=== PATIENT | male | born 1985 | race Caucasian/White ===

== ENCOUNTER → 2017-05-15 13:11 | Outpatient (CLI) | payer OTHER, SELFPAY | PROVIDERS: Family Provider Family Medicine; PCP Family Medicine; Visit Provider Family Medicine | DX: I49.9 Cardiac arrhythmia, unspecified (principal) | CPT/HCPCS: 93225; 93226 ==

== ENCOUNTER 2018-06-28 08:00 | Observation (INO) | payer OTHER, SELFPAY ==
[2018-06-28] VITALS (15 sets, daily range): BP systolic 106–125; BP diastolic 57–68; PULSE 51–68; RESP 13–20; TEMP 36.5–36.9; O2SAT 96–99; BMI 23.8; BMI 23.3
--- NOTE | 2018-06-28 08:15 | CT_ITS ---
STUDY: CTA OF THE BRAIN REASON FOR EXAM: Male, 33 years old. N/T LT ARM AND LEG SINCE 644, ON XARELTO FOR IRREG HEARTBEAT, OPEN HEART SURGERY 04/14/17 RADIATION DOSAGE (If Supplied By Facility): CTDIvol = ( 28.57 ) mGy, DLP = ( 1161.17 ) mGycm TECHNIQUE: CT angiography was performed with a multi-detector CT scanner. Data acquisition was obtained from the skull base through the vertex following intravenous administration of Isovue 370 100 IV. MIP images were reconstructed from the axial data set. Post-processing of the angiographic images was performed, with multiplanar reformation and 3D reconstruction. Individualized dose optimization techniques were used for this CT. COMPARISON: None. FINDINGS: Normal bilateral petrous carotid arteries. Normal right cavernous carotid artery with a normal supraclinoid bifurcation. Normal left cavernous carotid artery with a normal supraclinoid bifurcation. Normal right A1 segments of the anterior cerebral artery. Normal left A1 segments of the anterior cerebral artery. Normal intact anterior communicating artery (ACOM). Normal bilateral A2 segments of the anterior cerebral arteries. Normal right M1 and M2 segments of the middle cerebral arteries, with a normal M1 bifurcation. Normal left M1 and M2 segments of the middle cerebral arteries, with a normal M1 bifurcation. Normal right posterior communicating artery (PCOM). Normal left posterior communicating artery (PCOM). Normal bilateral vertebral arteries. Normal basilar artery with a normal basilar bifurcation. The visualized bilateral superior cerebellar (SCA) arteries are normal. Normal bilateral P1, P2 and visualized P3 segments of the posterior cerebral arteries. There is no demonstrated aneurysm of the skull valley of [place]. CT/CTA Head W/WO Contrast IMPRESSION: Normal [place] of [place] without a demonstrated aneurysm or hemodynamically significant stenosis. Electronically Signed: Madison Hernández MD at 9:16 EDT Tel , Service support ,
--- NOTE | 2018-06-28 08:15 | EKG12_ITS ---
Test Reason : NEURO S
[2018-06-28 08:22] LABS: Absolute Lymphocyte Count 2.17 X10^3/ul (0.83-4.51); Absolute Neutrophil Count 3.5 X10^3/uL (2.0-7.7); Basophil# 0.01 X10^3/uL; Basophil% 0.2 % (0-1); Eosinophil# 0.04 X10^3/uL; Eosinophils% 0.6 % (0-5); Hematocrit 45.6 % (40-54); Hemoglobin 15.1 g/dl (13.0-16.5); Lymphocyte # 2.17 X10^3/ul (4.0); Lymphocyte % 34.7 % (19-41); Mean Corp Hgb Conc 33.1 g/gl (32-36); Mean Corpuscular Volume 87.5 fL (80-94); Mean Platelet Vol. 9.5 fl (6.2-12.0); Monocyte# 0.53 X10^3/uL; Monocyte% 8.5 % (0-10); Neutrophil # 3.51 X10^3/uL (2.7-7.7); Platelet Count 181 K/mm3 (150-450); RBC Distribution Width CV 12.2 % (11.6-14.6); Red Blood Count 5.21 M/mm3 (4.6-6.2); White Blood Count 6.3 K/mm3 (4.4-11.0)
[2018-06-28 08:27] LABS: International Normalized Ratio 1.1; Prothrombin Time (Protime)PT. 13.7 SECONDS (11.7-14.9)
[2018-06-28 08:28] LABS: POSITIVE COUNT NO; POSITIVE DIFFERENTIAL NO; POSITIVE MORPHOLOGY NO; Partial Thromboplast Time 30.9 Seconds (24.1-36.2)
[2018-06-28 08:36] LABS: Anion Gap 6 (5-15); BUN 17 mg/dL (7-18); BUN/Creat Ratio 16.3 RATIO (10-20); Calcium,Total 8.9 mg/dL (8.5-10.1); Chloride 106 mmol/L (98-107); Creatinine, Serum 1.04 mg/dL (0.70-1.30); EST Glomerular Filtration Rate 88 mL/min (>60); Est Glom Filt Rate - Afr Amer 106 mL/min (>60); Estimated Creatinine Clearance 98.65 ml/min; Glucose 121 mg/dL (74-106); Potassium 3.8 mmol/L (3.5-5.1); Sodium Level 139 mmol/L (136-145)
--- NOTE | 2018-06-28 08:38 | ED.RN ---
TROP OF 1.[address] MARAVILLA.
--- NOTE | 2018-06-28 08:42 | ED.VISSUMM ---
- ER Visit Summary Date of Service: 06/28/18 Chief Complaint: Numbness left side History of Present Illness: The patient is a 33 M with history of H fibrillation on aspirin awaiting mail order prescription of Xarelto who presents with left-sided numbness that started at 0645. He states the numbness has improved. He denies headache. Denies visual, ocular auditory symptoms. He denies chest discomfort. He denies nausea, vomiting diarrhea. He denies hematemesis, no hematochezia. He denies weakness of his upper or lower extremities. He denies problems with balance. Denies problems with speech or swallowing. 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 He has been seen by Dr. Henderson at [facility]. Physical Examination: Vital signs noted. Monitor reveals what I believe is a sinus rhythm rate of 62. His T waves look abnormal and may represent a P wave inside/on the T wave. Head is atraumatic normocephalic. Pupils are equal round reactive. Extraocular muscles are intact. TMs are pearly white with landmarks noted. Nares patent with no drainage. Posterior pharynx without erythema or exudate. Uvula is midline. There is no dysphonia or dysphasia. Trachea is midline. There is no stridor with auscultation of the neck. Heart is regular without murmur, gallop or rub. S1 and S2 are normal. Lungs are clear to auscultation with good movement of air bilaterally. Abdomen is soft nontender. Patient is alert and oriented ?3. Motor is 5 over 5. Sensory is intact. DTRs are symmetric with no clonus or Babinski sign. Cranial 2 through 12 are intact. Cerebellar testing is normal. NIH is 0 Test Results: EKG sinus rhythm ventricular rate of 64 with a first-degree AV block and premature atrial beats. There is a left bundle branch block which is new from January 2017. He had a left anterior fascicular block at that time. Blood work is remarkable for troponin of 1.39. Lovenox since no evidence of bleed on CTA. Emergency Department Course and Treatment: Concern for embolic phenomenon since he is in A. fib and not on Xarelto. Once I was made aware of the elevated troponin he was reinterviewed and he admits to dyspnea, dyspnea on exertion and states not really with regards to chest pain . Will obtain CT a of the head to look for clot since he has history of paroxysmal A. fib and presently on no anticoagulant. With the elevated troponin he will require admission and will consult cardiology. Treatment Plan: Contact hospitalist for admission for further evaluation and cardiology because of the elevated troponin. Patient has history of hypothyroidism and is on thyroid medicine, [place]. Will obtain a TSH. Since the CTA of the head was unremarkable and troponin is 1.39 he received a dose of Lovenox. Dr. Holly was paged. He is presently caring for patient to [employer]. Hospitalist has been paged for admission and further testing. Disposition: PCU with consultation to cardiology Impression: 1. Elevated troponin evaluate for non-STEMI versus other etiology 2. Left sided paresthesia 3. History of paroxysmal atrial fibrillation This note was generated with [employer] dictation software. It may contain incorrect words, spelling, and punctuation that were not noted in review of the chart prior to signing ED Disposition - Plan for ED Patient: Referrals: Flavio Méndez DO [Primary Care Provider] -
--- NOTE | 2018-06-28 08:48 | ED.DCSUM_ITS ---
- ER Visit Summary Date of Service: 06/28/18 Chief Complaint: Numbness left side History of Present Illness: The patient is a 33 M with history of H fibrillation on aspirin awaiting mail order prescription of Xarelto who presents with left- sided numbness that started at 0645. He states the numbness has improved. He denies headache. Denies visual, ocular auditory symptoms. He denies chest discomfort. He denies nausea, vomiting diarrhea. He denies hematemesis, no hematochezia. He denies weakness of his upper or lower extremities. He denies problems with balance. Denies problems with speech or swallowing. 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 He has been seen by Dr. Ike smith at [facility]. Physical Examination: Vital signs noted. Monitor reveals what I believe is a sinus rhythm rate of 62. His T waves look abnormal and may represent a P wave inside/on the T wave. Head is atraumatic normocephalic. Pupils are equal round reactive. Extraocular muscles are intact. TMs are pearly white with landmarks noted. Nares patent with no drainage. Posterior pharynx without erythema or exudate. Uvula is midline. There is no dysphonia or dysphasia. Trachea is midline. There is no stridor with auscultation of the neck. Heart is regular without murmur, gallop or rub. S1 and S2 are normal. Lungs are clear to auscultation with good movement of air bilaterally. Abdomen is soft nontender. Patient is alert and oriented ?3. Motor is 5 over 5. Sensory is intact. DTRs are symmetric with no clonus or Babinski sign. Cranial 2 through 12 are intact. Cerebellar testing is normal. NIH is 0 Test Results: EKG sinus rhythm ventricular rate of 64 with a first-degree AV block and premature atrial beats. There is a left bundle branch block which is new from January 2017. He had a left anterior fascicular block at that time. Blood work is remarkable for troponin of 1.39. Lovenox since no evidence of bleed on CTA. Emergency Department Course and Treatment: Concern for embolic phenomenon since he is in A. fib and not on Xarelto. Once I was made aware of the elevated troponin he was reinterviewed and he admits to dyspnea, dyspnea on exertion and states not really with regards to chest pain . Will obtain CT a of the head to look for clot since he has history of paroxysmal A. fib and presently on no anticoagulant. With the elevated troponin he will require admission and will consult cardiology. Treatment Plan: Contact hospitalist for admission for further evaluation and cardiology because of the elevated troponin. Patient has history of hypothyroidism and is on thyroid medicine, [place]. Will obtain a TSH. Since the CTA of the head was unremarkable and troponin is 1.39 he received a dose of Lovenox. Dr. Holly was paged. He is presently caring for patient to [employer]. Hospitalist has been paged for admission and further testing. Disposition: PCU with consultation to cardiology Impression: 1. Elevated troponin evaluate for non-STEMI versus other etiology 2. Left sided paresthesia 3. History of paroxysmal atrial fibrillation This note was generated with [employer] dictation software. It may contain incorrect words, spelling, and punctuation that were not noted in review of the chart prior to signing ED Disposition - Plan for ED Patient: Referrals: Flavio Méndez DO [Primary Care Provider] -
--- NOTE | 2018-06-28 09:28 | HP.PCM_ITS ---
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 about a year ago. He also has a history of A. fib diagnosed about 2 years ago and on aspirin. He was recently started on Xarelto about a week ago but was still waiting to get the medication from his pharmacy through mail order. Patient states he started experiencing left-sided numbness and tingling around 6:30 AM of day of admission. Symptoms were episodic and longest lasted about 10 minutes. He did not have any weakness or blurred vision, any headache, any lightheadedness or dizziness, or any other symptoms. Of note, he states he has had such recurrent symptoms above. 2 previous times over the past 6 months and they resolved spontaneously. Review of systems otherwise negative. He came into the ED where CT of the head done was negative. Vitals were only remarkable for mild bradycardia of 58. Initial troponin was 1.37 but troponins are chronically elevated and were as high as 08/22/2016. TSH was suppressed at 0.01 and free T4 was 1.29 with free T3 being 5.2. He is been admitted to be managed for left-sided numbness and tingling likely due to a TIA. [] Past Medical History Past Medical History (Chronic Problems): Chronic Problems Mitral valve disorder (Chronic) Coxsackie carditis, unspecified (Chronic) Anxiety (Chronic) Allergies No Known Allergies Allergy (Verified 06/28/18 08:02) Home Medications: Ambulatory Orders Medication Instructions Recorded Lorazepam [Ativan] 0.5 mg PO DAILY 08/31/16 Rivaroxaban [Xarelto] 20 mg PO DAILY@0600 #45 tablet 09/05/16 Aspirin [Aspirin, Baby] 81 mg PO DAILY 06/28/18 Metoprolol Tartrate 50 mg PO QHS 06/28/18 Metoprolol Tartrate 100 mg PO DAILY 06/28/18 Surgical History: - - myectomy for HOCM ~ 1 year ago at [facility] Psychiatric History: Anxiety, Depression Lives: With Family Smoking Status: Never smoker Tobacco Use: Non-smoker Alcohol: None Drugs: None - *Family History Paternal History Items: Heart Disease - in an uncle. 5 of his siblings also carry gene for HOCM. Uncle had HOCM, - Maternal History Items: No pertinent history Review of Systems Constitutional: Denies: Chills, Fever, Malaise, Weakness, Weight Change Eyes: Denies: Blurred vision HEENT: Denies: Head Aches, Sinus Congestion, Sinus Drainage Cardiovascular: Denies: Chest Pain, Chest Tightness, Palpitations Respiratory: Denies: Cough, Shortness of breath at rest, Sputum production Gastrointestinal: Denies: Abdominal Pain, Nausea, Vomiting Genitourinary: Denies: Dysuria Musculoskeletal: Denies: Foot Pain, Joint Pain, Joint Tenderness Skin: Denies: Rash, Wounds Neurological: Reports: Numbness, Tingling. Denies: Balance problems, Blurred vision, Double vision, Change in Speech, Slurred speech, Confusion, Difficulty swallowing, Focal weakness, Headaches, Tremor, Seizures Psychiatric: Denies: Anxiety, Depression, Homicidal Ideations, Suicidal Ideations Hematologic/ Lymphatic: Denies: Easy Bruising, Easy Bleeding VTE Information - Inpt Only VTE Present on Admission: No VTE Pharm Prophylaxis ordered?: Yes - Physical Exam General: Alert, Oriented x3, Cooperative, No apparent distress HEENT: Atraumatic, PERRLA, EOMI, Normocephalic Oral: Moist Mucosa Neck: Supple, No JVD, Negative Carotid Bruits Lungs: Clear to auscultation, Normal air movement, No rhonchi, No wheeze, No rales Cardiovascular: Normal S1, Normal S2, No murmurs, - - irregular rate and rhythm Abdomen: Bowel Sounds Present, Soft, Non Tender, Non-Distended, No Hepato- splenomegaly Extremities: No clubbing, No cyanosis, No edema, Capillary Refill Less than 3 Seconds Skin: No rashes, No breakdown Musculoskeletal: No Tenderness to Palpation of Joints or Extremities Lymphatic: No Cervical, Supraclavicular, or Inguinal Adenopathy Neurological: Cranial nerves II-XII grossly intact, Neuro grossly intact, Motor Exam 5/5 strength throughout Psych/Mental Status: Normal Affect, Appropriate, Alert and oriented to time, place, person, mood and affect Vital Signs Temp Pulse Resp BP Pulse Ox 98.5 F 60 13 119/67 96 06/28/18 08:00 06/28/18 08:24 06/28/18 08:24 06/28/18 08:24 06/28/18 08:24 Oxygen Delivery Method Room Air Weight: 157 lb Body Mass Index (BMI) 23.8 Laboratory Tests Past 24 Hrs 06/28/18 06/28/18 06/28/18 08:06 08:06 08:06 WBC 6.3 RBC 5.21 Hgb 15.1 Hct 45.6 MCV 87.5 MCH 29.0 MCHC 33.1 RDW 12.2 RDW Differential 39.0 Plt Count 181 MPV 9.5 Immature Gran % (Auto) 0.000 Neut % (Auto) 56.0 Lymph % (Auto) 34.7 Ocean % (Auto) 8.5 Eos % (Auto) 0.6 Baso % (Auto) 0.2 Absolute Neuts (auto) 3.5 Absolute Lymphs (auto) 2.17 Total Counted Not Reportable PT 13.7 INR 1.1 APTT 30.9 Sodium 139 Potassium 3.8 Chloride 106 Carbon Dioxide 27.0 Anion Gap 6 BUN 17 Creatinine 1.04 Estim Creat Clear Calc 98.65 Est GFR (MDRD) Af Amer 106 Est GFR (MDRD) Non-Af 88 BUN/Creatinine Ratio 16.3 Glucose 121 H Calcium 8.9 Troponin I 1.390 H* TSH 06/28/18 08:06 WBC RBC Hgb Hct MCV MCH MCHC RDW RDW Differential Plt Count MPV Immature Gran % (Auto) Neut % (Auto) Lymph % (Auto) Ocean % (Auto) Eos % (Auto) Baso % (Auto) Absolute Neuts (auto) Absolute Lymphs (auto) Total Counted PT INR APTT Sodium Potassium Chloride Carbon Dioxide Anion Gap BUN Creatinine Estim Creat Clear Calc Est GFR (MDRD) Af Amer Est GFR (MDRD) Non-Af BUN/Creatinine Ratio Glucose Calcium Troponin I TSH Pending Diagnostic Data Head CTA 06/28/18 08:15 IMPRESSION: Normal [place] of [place] without a demonstrated aneurysm or hemodynamically significant stenosis. Electronically Signed: Madison Hernández MD at 9:16 EDT Tel , Service support , Assessment/Plan All Active Problems Atrial fibrillation and flutter (Acute) Atrial flutter with rapid ventricular response (Acute) NSTEMI (non-ST elevated myocardial infarction) (Acute) 33-year-old male with a history of A. fib presenting with numbness on the left side. 1. Left sided numbness and tingling due to TIA * Had been on aspirin but was told to start Xarelto just about a week ago. Having a started as he was waiting for medication to come to the room in order pharmacy. * CT of the head was negative for any infarct * Admits to PCU with telemetry * NIHSS score was 0. Time of review. * Check NIHSS score q. 4 hourly * passed bedside swallow evaluation on floor; will give diet * Will get MRI of the brain MRI and MRA of the head and neck. * If these are negative for any bleed, will start on Xarelto. * 2. History of A. fib: * Currently rate and rhythm controlled. * TSH was suppressed at 0.01 and free T3 was elevated at 5.2 with free T4 at 1.29. * This indicative of of T3 hyperthyroidism. * Will need to be started on medication for hypothyroidism. * will start on xarelto after reviewinig MRI of brain * 3. T3 hyperthyroidism: as under 2 4. History of HOCM s/p myectomy and MAZE procedure: stable. Follows up with cardiologists at [facility] 5. Elevated troponin. * Was 1.39 on admission. Trended down slightly to 1.37. Per review of chart, patient's troponin has been chronically elevated since 2017 going as high as 5.58. * EKG showed no acute ST changes. * Per review of EMR, he was seen in 2017 for the recurrent abnormal cardiac enzymes. Per cardiology documentation then, he had undergone evaluation for this in the past and was not found to have any underlying evidence of coronary artery disease. * Will monitor closely and cycle troponins and repeat EKG as needed. * DVT prophylaxis; to start on xarelto after reviewing MRI Code Visit OBSV E&M: 74176 Initial observation care L3
[2018-06-28 09:29] LABS: Thyroid Stim Hormone (TSH) < 0.01 uIU/mL (0.358-3.74)
--- NOTE | 2018-06-28 11:17 | MRI_ITS ---
STUDY: MRA NECK WITH AND WITHOUT CONTRAST REASON FOR EXAM: Male, 33 years old. N Numbness/Tingling LEFT UPPER EXTREMITY SINCE THIS AM, H/O RECENT HEART SX, ON XERLTO. TECHNIQUE: 3-D sidy-mj-moqydc (TOF) imaging was performed in an 1.5 T MRI scanner. Dotarem 14 IV was administered for the contrast enhanced images. COMPARISON: None. FINDINGS: RIGHT CAROTID ARTERIES: Normal right common carotid artery (CCA). Normal right common carotid bulb. Normal origin of the right internal carotid (ICA) artery without a hemodynamically significant stenosis. Normal visualized cervical portion of the right internal carotid artery. Normal origin of the right external carotid artery (ECA). LEFT CAROTID ARTERIES: Normal left common carotid artery (CCA). Normal left common carotid bulb. Normal origin of the left internal carotid (ICA) artery without a hemodynamically significant stenosis. Normal visualized cervical portion of the left internal carotid artery. Normal origin of the left external carotid artery (ECA). VERTEBRAL ARTERIES: There is antegrade flow within the bilateral vertebral arteries with a small left vertebral artery, and a dominant right vertebral artery. MRI/MRA Neck WITH and W/O Contrast IMPRESSION: No demonstrated occlusion or significant stenosis. Electronically Signed: Madison Hernández MD at 14:01 EDT Tel , Service support ,
--- NOTE | 2018-06-28 11:17 | MRI_ITS ---
STUDY: MRI BRAIN WITHOUT CONTRAST REASON FOR EXAM: Male, 33 years old. N Numbness/Tingling LEFT UPPER EXTREMITY SINCE THIS AM, H/O RECENT HEART SX, ON XERLTO. TECHNIQUE: Standardized multiplanar fat and water weighted pulse sequences were obtained. COMPARISON: 06/28/2018 FINDINGS: Normal size of the ventricles and extra-axial spaces for the patient's age. Normal white matter tracts of the supratentorial brain. Normal bilateral basal ganglia. Normal thalami. There is no extra-axial fluid accumulation. Normal flow voids within the major intracranial circulation suggesting patency by spin echo criteria. Normal sella turcica, pituitary gland, infundibular stalk, optic chiasm and hypothalamus. Normal tectal plate and pineal gland. Normal midbrain, colton and medulla. Normal cerebellum. Normal basal cisterns. Normal bilateral temporal bones. Normal bilateral internal auditory canals. No demonstrated orbital abnormality, within the constraints of a routine brain study. There is mucoperiosteal inflammatory disease of the paranasal sinuses consistent with moderate chronic sinusitis. MRI/Brain without Contrast IMPRESSION: No acute intracranial abnormality. Moderate paranasal sinus disease Electronically Signed: Madison Hernández MD at 13:56 EDT Tel , Service support ,
[2018-06-28 11:52] LABS: Free T3 5.2 pg/mL (2.18-3.98); T4 Free Direct 1.29 ng/dL (0.76-1.46)
--- NOTE | 2018-06-28 14:36 | US_ITS ---
STUDY: THYROID ULTRASOUND REASON FOR EXAM: Male, 33 years old. Hyperthyroidism. TECHNIQUE: Ultrasound evaluation of the thyroid was performed with real-time and static delgado-scale imaging. COMPARISON: None. FINDINGS: RIGHT LOBE: The right lobe of the thyroid gland measures 5.0 x 1.9 x 1.7 cm. There is a homogeneous echotexture. There are no demonstrated solid, cystic or complex lesions. LEFT LOBE: The left lobe of the thyroid gland measures 4.3 x 1.6 x 1.8 cm. There is a homogeneous echotexture. There are no demonstrated solid, cystic or complex lesions. ISTHMUS: The isthmus measures 4.0 mm . The regional lymph nodes are normal. US/Thyroid IMPRESSION: Enlarged thyroid gland. Electronically Signed: Radha Membreno MD at 16:21 EDT Tel , Service support ,
--- NOTE | 2018-06-28 15:41 | NURSING ---
Pt down for thyroid U/S.
--- NOTE | 2018-06-28 15:56 | NURSING ---
Pt back from U/S. in the room. Denies pain or discomfort.
[2018-06-28] MEDS: Metoprolol Tartrate 50 MG Tablet PO (21:55)
[2018-06-28] MEDS: LORazepam 0.5 MG Tablet PO (21:55)
[2018-06-29] VITALS (7 sets, daily range): BP systolic 108–111; BP diastolic 57–60; PULSE 51–60; RESP 16; TEMP 36.3–36.4; O2SAT 96–98
[2018-06-29 06:24] LABS: Absolute Lymphocyte Count 2.18 X10^3/ul (0.83-4.51); Absolute Neutrophil Count 4.5 X10^3/uL (2.0-7.7); Basophil# 0.01 X10^3/uL; Basophil% 0.1 % (0-1); Eosinophil# 0.06 X10^3/uL; Eosinophils% 0.8 % (0-5); Hematocrit 46.9 % (40-54); Hemoglobin 15.7 g/dl (13.0-16.5); Lymphocyte # 2.18 X10^3/ul (4.0); Lymphocyte % 28.4 % (19-41); Mean Corp Hgb Conc 33.5 g/gl (32-36); Mean Corpuscular Hgb 29.3 pg (27.0-32.0); Mean Corpuscular Volume 87.7 fL (80-94); Mean Platelet Vol. 9.6 fl (6.2-12.0); Monocyte# 0.88 X10^3/uL; Monocyte% 11.5 % (0-10); Neutrophil # 4.53 X10^3/uL (2.7-7.7); Neutrophil % 59.1 % (47-70); Platelet Count 203 K/mm3 (150-450); RBC Distribution Width CV 12.3 % (11.6-14.6); Red Blood Count 5.35 M/mm3 (4.6-6.2); White Blood Count 7.7 K/mm3 (4.4-11.0)
[2018-06-29 06:29] LABS: POSITIVE COUNT NO; POSITIVE DIFFERENTIAL NO; POSITIVE MORPHOLOGY NO
[2018-06-29] MEDS: Rivaroxaban 20 MG Tablet PO (06:43)
[2018-06-29 06:54] LABS: Anion Gap 7 (5-15); BUN 15 mg/dL (7-18); BUN/Creat Ratio 15.8 RATIO (10-20); Calcium,Total 9.1 mg/dL (8.5-10.1); Chloride 107 mmol/L (98-107); Creatinine, Serum 0.95 mg/dL (0.70-1.30); EST Glomerular Filtration Rate 98 mL/min (>60); Est Glom Filt Rate - Afr Amer 118 mL/min (>60); Glucose 98 mg/dL (74-106); Potassium 4.3 mmol/L (3.5-5.1); Sodium Level 141 mmol/L (136-145)
[2018-06-29] MEDS: Metoprolol Tartrate 100 MG Tablet PO (09:48)
[2018-06-29] MEDS: Aspirin 81 MG TAB.CHEW PO (09:48)
[2018-06-29] MEDS: LORazepam 0.5 MG Tablet PO (09:49)
--- NOTE | 2018-06-29 11:57 | PCM.DC ---
You will use the following diet at home:: No restrictions Your food should be the consistency of: Regular Your liquids should be the consistency of: Regular/Thin Discharge Activity: Return to Normal Activity Weight Bearing Status: Full weight bearing Allergies/Adverse Reactions: Allergies No Known Allergies Allergy (Verified 06/28/18 08:02) Medications to take at Discharge Lorazepam [Ativan] 0.5 mg PO DAILY 08/31/16 Rivaroxaban [Xarelto] 20 mg PO DAILY@0600 #45 tablet 09/05/16 Aspirin [Aspirin, Baby] 81 mg PO DAILY 06/28/18 Metoprolol Tartrate 50 mg PO QHS 06/28/18 Metoprolol Tartrate 100 mg PO DAILY 06/28/18 Thyroid [[place] Thyroid] 60 mg PO DAILY 06/28/18 Primary Care Physician: Flavio Méndez DO [Primary Care Provider] - Please follow up with your Primary Care Physician in: in 2 weeks Test Results: Test results from this visit will be discussed in further detail at your follow-up appointment, if applicable.
--- NOTE | 2018-06-29 13:13 | CASEMGMT ---
Patient is supposed to be on Xarelto, but he does not have insurance coverage. EMILY printed out [employer] prescription assistance application for patient. EMILY then spoke with patient and his . SW let them know that [facility] has a program that we can assist with prescriptions one time. EMILY told them that they are going to have to contact their PCP right away to help complete this application so they can get process started before he runs out of the free supply. Patient's said they used to be on the program, but then it . EMILY told her they will need to make contact with company. They verbalized understanding. EMILY notified pharmacy that Xarleto will be covered by [facility] assistance program. Henny HUGHES MSW
--- NOTE | 2018-06-30 17:04 | PCM.DC.SUM ---
Discharge Date and Diagnosis Date of Admission: 06/28/18 Date of Discharge: 06/29/18 - Primary Discharge Diagnosis #1 left-sided paresthesia-etiology unclear #2 chronically elevated troponin-etiology unclear #3 paroxysmal atrial fibrillation #4 hypothyroidism - Secondary Discharge Diagnosis Chronic Problems Mitral valve disorder (Chronic) Coxsackie carditis, unspecified (Chronic) Anxiety (Chronic) Hospital Course and Treatment Operations: None Summary of Care Provided: The patient is a 33 year old M who was seen in the emergency room at [facility] with chief complaint of paresthesias over the left side of his body. Patient denied any focal weakness. He denied any speech or visual problems. Patient states he was seen recently by an EP physician in [place] who recommended he go on Xarelto for paroxysmal atrial fibrillation. Workup in the emergency room included an EKG which showed a sinus rhythm at a rate of 64 with a first-degree AV block and premature atrial beats. There was also noted to be a left bundle branch block. Blood work was remarkable for troponin of 1.39. CT of the head was unremarkable. Patient was placed in observation status for elevated troponin and left-sided paresthesias, repeat troponins remained elevated and it was noted that the patient had a history of elevated troponins in the past without any exact etiology. Patient had been seen in the recent past by cardiology and underwent evaluation for possible coronary artery disease and none was found. Patient underwent further imaging studies which showed no evidence of stroke, patient's paresthesias resolved. Patient was given a coupon for Xarelto as he was unsure how he was going to pay for Xarelto and had not yet gotten it filled. On 06/29/18, patient was seen and examined and felt to be in stable condition for discharge home: On examination he appeared in good health and spirits. Vital signs as documented. Skin warm and dry and without overt rashes. Neck without JVD. Lungs clear. Heart exam notable for regular rhythm, normal sounds and absence of murmurs, rubs or gallops. Abdomen unremarkable and without evidence of organomegaly, masses, or abdominal aortic enlargement. Extremities nonedematous. Neuro: Cranial nerves II through XII are grossly intact, no focal motor deficits were noted, sensation to light touch and pinprick intact. Psych: Patient is alert and oriented x3, he does not appear anxious or depressed - Physical Exam Vital Signs Temp Pulse Resp BP Pulse Ox 97.4 F L 56 L 16 111/57 L 98 06/29/18 09:40 06/29/18 11:00 06/29/18 09:40 06/29/18 09:40 06/29/18 09:40 Oxygen Delivery Method Room Air Weight: 69.5 kg Body Mass Index (BMI) 23.3 Finger Stick Blood Glucose 121 Intake and Output for Last 24 Hours 06/28/18 06/29/18 06/30/18 23:59 23:59 23:59 Intake Total 240 / 240 840 / 840 Output Total Balance 240 / 240 839 / 839 Discharge Activity: Return to Normal Activity Weight Bearing Status: Full weight bearing Home Medications: Medications to take at Discharge Lorazepam [Ativan] 0.5 mg PO DAILY 08/31/16 Rivaroxaban [Xarelto] 20 mg PO DAILY@0600 #45 tablet 09/05/16 Aspirin [Aspirin, Baby] 81 mg PO DAILY 06/28/18 Metoprolol Tartrate 50 mg PO QHS 06/28/18 Metoprolol Tartrate 100 mg PO DAILY 06/28/18 Thyroid [Mammoth Thyroid] 60 mg PO DAILY 06/28/18 Primary Care Physician: Flavio Méndez DO [Primary Care Provider] - Please follow up with your Primary Care Physician in: in 2 weeks Please Follow Up With: elba Disposition: Home Minutes spent on discharge:: 30 Patient Condition:: Stable Medical Necessity - Tobacco Use Smoking Status: Smoker, status unknown Tobacco Use: Non-smoker Meaningful Use Info Meaningful Use Diagnoses (Choose all that apply): None applicable Code Visit OBSV E&M: 04670 Observation care discharge
== END 2018-06-29 11:57 | disposition home or self-care (01) ==
LOC: ED 08:21 → PCU 09:47
PROVIDERS: Admitting Provider Student in an Organized Health Care Education/Training Program; Emergency Provider Emergency Medicine; Family Provider Family Medicine; PCP Family Medicine; Visit Provider Internal Medicine
DX: R20.2 Paresthesia of skin (principal); I48.0 Paroxysmal atrial fibrillation; E03.9 Hypothyroidism, unspecified; Z79.01 Long term (current) use of anticoagulants; Z79.82 Long term (current) use of aspirin; Z79.899 Other long term (current) drug therapy; F41.9 Anxiety disorder, unspecified; I44.4 Left anterior fascicular block; I44.0 Atrioventricular block, first degree; R00.2 Palpitations; F32.9 Major depressive disorder, single episode, unspecified; E05.90 Thyrotoxicosis, unspecified without thyrotoxic crisis or storm
CPT/HCPCS: 36415; 70496; 70549; 70551; 76536; 80048; 84439; 84443; 84481; 84484; 85025; 85610; 85730; 93005; 97161; 97165; 99218; 99285; A9575; Q9967; A4216; G0378

== ENCOUNTER 2020-06-22 12:26 | Inpatient (IN) | payer OTHER, SELFPAY ==
[2018-06-28 23:10] VITALS: BMI 23.3
[2020-06-22] VITALS (14 sets, daily range): BP systolic 95–122; BP diastolic 56–77; PULSE 48–86; RESP 14–98; TEMP 36.3–36.9; O2SAT 16–100; BMI 25.1; BMI 23.6; BMI 23.7
--- NOTE | 2020-06-22 12:43 | EKG12_ITS ---
Test Reason : PALPS Blood Pressure : / mmHG Vent. Rate : 064 BPM Atrial Rate : 054 BPM P-R Int : 214 ms QRS Dur : 164 ms QT Int : 468 ms P-R-T Axes : 032 -46 139 degrees QTc Int : 482 ms Sinus bradycardia with 1st degree A-V block with Premature supraventricular complexes Left axis deviation Left bundle branch block Abnormal ECG Confirmed by RANDAL RAO, MICHAEL ([id number]), online editor MORIS WALLACE ([id number]) on 06/25/2020 10:28:17 A M Referred By: DIMPLE Confirmed By:CARLA TEE MD
--- NOTE | 2020-06-22 12:43 | ED.VIS.GEN ---
History of Present Illness Chief Complaint: Palpitations Informant: Patient Narrative: 35-year-old male presenting with palpitations. He has history of atrial fibrillation, atrial flutter, coxsackie carditis, NSTEMI, HOCM that is post myectomy. He is denying any chest pain or shortness of breath. Patient states that he has had palpitations for the last 2 to 3 days. He has a scheduled appointment with an superior court clerk at [facility] on Thursday. He states that he needs a cardiac ablation. Patient has not had any viral symptoms. Patient states he is eating and drinking normally. Denies black or bloody stools. States he called [facility] and was unsatisfied with them because they did not give him direct information on whether or not to come to the emergency room. They state they called the [facility] who told him to go to the emergency room. Past Medical History - Allergies and Home Meds Allergies/Adverse Reactions: Allergies No Known Allergies Allergy (Verified 06/22/20 12:29) Primary Care Physician: Flavio Méndez DO [Primary Care Provider] - Prior records reviewed: Yes Past Medical History: - - Atrial fibrillation, atrial flutter, coxsackie carditis, NSTEMI, anxiety, HOCM Surgical History: - - myectomy for HOCM ~ 1 year ago at [facility] Lives: Spouse/ Significant Other Smoking Status: Smoker, status unknown Alcohol: None Drugs: None - Family History Paternal Family History: Reports: Heart Disease - in an uncle. 5 of his siblings also carry gene for HOCM. Uncle had HOCM, - Maternal Family History: Reports: No pertinent history Review of Systems General: Denies: Chills, Fever, Sweats Eyes: Denies: Visual changes - bilaterally, Diplopia ENT: Denies: Rhinorrhea, Sore throat Cardiovascular: Reports: Palpitations, Heart racing Respiratory: Denies: Dyspnea, Cough, Sputum, Dyspnea on exertion Gastrointestinal: Denies: Abdominal pain, Nausea, Vomiting, Diarrhea, Melena, Hematochezia Genitourinary: Denies: Dysuria, Hematuria, Frequency Musculoskeletal: Denies: Back pain, Extremity Pain Skin: Denies: Rash, Wounds Neurological: Denies: Headache, Weakness, Numbness Psych: Reports: Anxiety. Denies: Depression, Suicidal thoughts, Suicidal ideations Physical Exam Vital Signs/Narrative: Vital Signs Temp Pulse Resp BP Pulse Ox 06/22/20 12:27 97.3 F L 65 14 122/58 H 100 Inital Vital Signs reviewed: Yes General: Well nourished, No Acute Distress Head: Normocephalic, Atraumatic Eyes: Perrl, EOMI ENT: Moist mucous membranes, Sinus tenderness Cardiovascular: Regular rate, Irregular Respiratory: No distress, CTA bilaterally, Chest nontender Abdomen: Soft, Nontender, Nondistended, Normal bowel sounds Extremities: Nontender, No edema Skin: Normal color, No rash Neurological: Alert, Oriented x3, Cranial nerves II-XII grossly intact, Normal Strength, Normal Sensation Psychological: Normal affect, Normal Mood Diagnostic/Tx/Re-eval Clinical Impression(s) from Imaging Studies Chest X-Ray 06/22/20 12:55 IMPRESSION: No acute cardiopulmonary findings Cardiomegaly with previous cardiac surgery Electronically Signed: Spencer Condon, DO at 13:14 EST Tel , Service support , Laboratory Data 06/22/20 06/22/20 12:42 12:42 WBC 7.1 RBC 5.05 Hgb 15.3 Hct 45.9 MCV 90.9 MCH 30.3 MCHC 33.3 RDW Std Deviation 42.4 RDW Coeff of Darrius 12.7 Plt Count 168 MPV 9.7 Immature Gran % (Auto) 0.300 Neut % (Auto) 62.0 Lymph % (Auto) 26.6 [place] % (Auto) 10.1 H Eos % (Auto) 0.7 Baso % (Auto) 0.3 Absolute Neuts (auto) 4.4 Absolute Lymphs (auto) 1.89 Nucleated RBC % 0 Sodium 138 Potassium 3.8 Chloride 103 Carbon Dioxide 29.0 Anion Gap 6 BUN 11 Creatinine 1.08 Estim Creat Clear Calc 93.24 Est GFR (MDRD) Af Amer 101 Est GFR (MDRD) Non-Af 83 BUN/Creatinine Ratio 10.2 Glucose 108 H Calcium 8.9 Magnesium 2.2 Troponin I 1.200 H* - Medical Decision Making 35-year-old male presenting with palpitations for the last couple of days. He is not experiencing any chest pain. Patient states that he is scheduled to see superior court clerk named Dr. Donahue on Thursday. He was told that if medications are not working he would probably need an ablation. Patient's initial EKG was sinus bradycardia with first-degree AV block and left bundle branch block as interpreted by myself. His second EKG was similar at 55 bpm as interpreted by myself. 30 EKG was performed when patient became tachycardic and it is noted that he is in atrial fibrillation with aberrancy as interpreted by myself. Patient is not experiencing any chest pain. Work is fairly normal except for a troponin of 1.2. Patient is already anticoagulated. Looking back through the medical chart this is actually his lowest troponin. Its possible this could be elevated from the palpitations for the last couple days although he is not experiencing any pain or shortness of breath. Chest x-ray is interpreted by myself shows no acute cardiopulmonary process. Patient was discussed with Dr. Bland who is a optical model maker and tester for [facility] who works with Dr. Lino. He is willing to accept the patient in transfer given his tachycardia and bradycardia and abnormal rhythms. He did not recommend heparin drip. Patient does have pacer pads on his chest just in case. He will be transferred when a bed is assigned. Patient will be signed out to incoming ED doc for monitoring until transfer. Impression 1. Palpitations 2. NSTEMI ED Disposition - Plan for ED Patient: Referrals: Flavio Méndez DO [Primary Care Provider] -
[2020-06-22 12:50] LABS: Absolute Lymphocyte Count 1.89 X10^3/uL (0.83-4.51); Absolute Neutrophil Count 4.4 X10^3/uL (2.0-7.7); Basophil# 0.02 X10^3/uL; Basophil% 0.3 % (0-1); Eosinophil# 0.05 X10^3/uL; Eosinophils% 0.7 % (0-5); Hematocrit 45.9 % (40-54); Hemoglobin 15.3 g/dL (13.0-16.5); Lymphocyte # 1.89 X10^3/ul (4.0); Lymphocyte % 26.6 % (19-41); Mean Corp Hgb Conc 33.3 g/dL (32-36); Mean Corpuscular Hgb 30.3 pg (27.0-32.0); Mean Corpuscular Volume 90.9 fL (80-94); Mean Platelet Vol. 9.7 fl (6.2-12.0); Monocyte# 0.72 X10^3/uL; Monocyte% 10.1 % (0-10); NRBC Flagged by Analyzer 0 % (0-5); Neutrophil # 4.41 X10^3/uL (2.7-7.7); Platelet Count 168 K/mm3 (150-450); RBC Distribution Width CV 12.7 % (11.6-14.6); RBC Distribution Width SD 42.4 fl (35.1-43.9); Red Blood Count 5.05 M/mm3 (4.6-6.2); White Blood Count 7.1 K/mm3 (4.4-11.0)
--- NOTE | 2020-06-22 12:55 | RAD_ITS ---
STUDY: X-RAY CHEST REASON FOR EXAM: Male, 35 years old. chest pain TECHNIQUE: Single AP portable view of the chest. COMPARISON: 01/24/2017. FINDINGS: Median sternotomy. Cardiomegaly. Pulmonary vascularity unremarkable. Aorta unremarkable. No focal patchy airspace opacities. No pleural effusions. Upper abdomen unremarkable. Osseous structures intact. No pneumothorax. RAD/Chest 1 View (Portable) IMPRESSION: No acute cardiopulmonary findings Cardiomegaly with previous cardiac surgery Electronically Signed: Spencer Condon DO at 13:14 EST Tel , Service support ,
[2020-06-22 13:14] LABS: Anion Gap 6 (5-15); BUN 11 mg/dL (7-18); BUN/Creat Ratio 10.2 RATIO (10-20); Calcium,Total 8.9 mg/dL (8.5-10.1); Chloride 103 mmol/L (98-107); Creatinine, Serum 1.08 mg/dL (0.70-1.30); EST Glomerular Filtration Rate 83 mL/min (>60); Est Glom Filt Rate - Afr Amer 101 mL/min (>60); Estimated Creatinine Clearance 93.24 ml/min; Glucose 108 mg/dL (74-106); Magnesium 2.2 mg/dL (1.6-2.6); Potassium 3.8 mmol/L (3.5-5.1); Sodium Level 138 mmol/L (136-145)
--- NOTE | 2020-06-22 13:20 | EKG12_ITS ---
Test Reason : REPEAT Blood Pressure : / mmHG Vent. Rate : 114 BPM Atrial Rate : 129 BPM P-R Int : 000 ms QRS Dur : 160 ms QT Int : 452 ms P-R-T Axes : 000 -48 130 degrees QTc Int : 623 ms Atrial fibrillation Left axis deviation Left bundle branch block Abnormal ECG Confirmed by RANDAL RAO, MICHAEL ([id number]), editor school photograph MORIS WALLACE ([id number]) on 06/25/2020 10:28:33 A M Referred By: DIMPLE Confirmed By:CARLA TEE MD
--- NOTE | 2020-06-22 13:21 | EKG12_ITS ---
Test Reason : REPEAT Blood Pressure : / mmHG Vent. Rate : 055 BPM Atrial Rate : 055 BPM P-R Int : 202 ms QRS Dur : 180 ms QT Int : 472 ms P-R-T Axes : -05 -47 153 degrees QTc Int : 451 ms Sinus bradycardia with Premature supraventricular complexes Left axis deviation Left bundle branch block Abnormal ECG Confirmed by RANDAL RAO, MICHAEL ([id number]), editor department MORIS WALLACE ([id number]) on 06/25/2020 10:32:29 A M Referred By: DIMPLE Confirmed By:CARLA TEE MD
[2020-06-22] MEDS: Aspirin 81 MG TAB.CHEW 324 MG PO (14:43)
--- NOTE | 2020-06-22 16:37 | EKG12_ITS ---
Test Reason : 4 HOUR REPEAT Blood Pressure : / mmHG Vent. Rate : 055 BPM Atrial Rate : 055 BPM P-R Int : 226 ms QRS Dur : 166 ms QT Int : 486 ms P-R-T Axes : -10 -48 134 degrees QTc Int : 464 ms Sinus bradycardia with 1st degree A-V block with Premature supraventricular complexes Left axis deviation Left bundle branch block Abnormal ECG Confirmed by RANDAL RAO, MICHAEL ([id number]), editorial clerk MORIS WALLACE ([id number]) on 06/25/2020 10:58:46 A M Referred By: TAIWO Confirmed By:CARLA TEE MD
--- NOTE | 2020-06-22 17:00 | ED.RN ---
PER AGATHA WITH THE [facility] TRANSFER LINE, THEY ARE STILL WAITING ON A BED. SHE STATED ' QUITE HONESTLY WILL PROBABLY WILL NOT HAVE A BED AND SHOULD CONSIDER ADMITTING PT TO OUR FACILITY FOR THE NIGHT
--- NOTE | 2020-06-22 17:07 | PCM.HP.STD ---
Problem List (1) Atrial fibrillation and flutter Status: Chronic (2) NSTEMI (non-ST elevated myocardial infarction) Status: Chronic (3) Anxiety Status: Chronic (4) Coxsackie carditis, unspecified Status: Chronic (5) Mitral valve disorder Status: Chronic History of Present Illness Date of Admission: 06/22/20 Chief Complaint: Palpitations. The patient is a 35 year old M who presents to the emergency room due to palpitations. Patient has a history of paroxysmal atrial fibrillation with intermittent palpitations. He states over the past few days his palpitations have significantly worsened. He states he was scheduled to see an EP doctor at [facility] on Thursday however came to the ER due to worsening symptoms. He denies chest pain, shortness of breath, lightheadedness. He was told he needs evaluation for cardiac ablation. [facility] has accepted patient however they do not have a bed available, patient will be admitted pending transfer. He has a past medical history of paroxysmal atrial fibrillation/atrial flutter, coxsackie carditis, hypertrophic obstructive cardiomyopathy status post myomectomy, anxiety. Past Medical History Past Medical History (Chronic Problems): Chronic Problems Mitral valve disorder (Chronic) Atrial fibrillation and flutter (Chronic) Coxsackie carditis, unspecified (Chronic) NSTEMI (non-ST elevated myocardial infarction) (Chronic) Anxiety (Chronic) Allergies No Known Allergies Allergy (Verified 06/22/20 12:29) Home Medications: Ambulatory Orders Medication Instructions Recorded Lorazepam [Ativan] 0.5 mg PO DAILY PRN PRN 08/31/16 Rivaroxaban [Xarelto] 20 mg PO DAILY@0600 #45 tablet 09/05/16 Metoprolol Tartrate 50 mg PO QHS 06/28/18 Metoprolol Tartrate 100 mg PO DAILY 06/28/18 Surgical History: - - myectomy for HOCM ~ 1 year ago at [facility] Psychiatric History: Anxiety, Depression Lives: Spouse/ Significant Other Smoking Status: Former smoker Alcohol: None Drugs: None - *Family History Paternal History Items: Heart Disease - in an uncle. 5 of his siblings also carry gene for HOCM. Uncle had HOCM, - - Cancer Maternal History Items: - - related to cancer Review of Systems Constitutional: Denies: Chills, Fever, Weight Change HEENT: Denies: Head Aches, Sinus Congestion, Sinus Drainage Cardiovascular: Reports: Palpitations. Denies: Chest Pain, Chest Tightness, Edema, Light Headedness, Syncope Respiratory: Denies: Cough, Shortness of breath at rest, Sputum production Gastrointestinal: Denies: Abdominal Pain, Nausea, Vomiting Genitourinary: Denies: Dysuria Musculoskeletal: Denies: Joint Pain, Joint Tenderness Skin: Denies: Rash, Wounds Neurological: Denies: Numbness, Tingling, Focal weakness Psychiatric: Denies: Anxiety, Depression, Homicidal Ideations, Suicidal Ideations Hematologic/ Lymphatic: Denies: Easy Bruising, Easy Bleeding VTE Information - Inpt Only VTE Present on Admission: No VTE Mechan Device Prophylaxis: None VTE Pharm Prophylaxis ordered?: No Reason prophylaxis not ordered:: Treatment Not Indicated - Already on anticoagulation with Xarelto - Physical Exam Vitals/I&O's: Vital Signs Temp Pulse Resp BP Pulse Ox 97.3 F L 56 L 16 105/77 97 06/22/20 12:27 06/22/20 14:41 06/22/20 14:41 06/22/20 14:41 06/22/20 14:41 Oxygen Delivery Method Room Air Weight: 165 lb 5.547 oz Body Mass Index (BMI) 25.1 Finger Stick Blood Glucose 121 General: Alert, Oriented x3, Cooperative HEENT: Atraumatic, PERRLA, EOMI, Normocephalic Neck: Supple, No JVD, Negative Carotid Bruits Lungs: Clear to auscultation, Normal air movement Cardiovascular: Regular rate, No murmurs Abdomen: Bowel Sounds Present, Soft, Non Tender Extremities: No clubbing, No cyanosis, No edema, Capillary Refill Less than 3 Seconds Skin: No rashes, No breakdown, - - Healed midsternal scar Musculoskeletal: No Tenderness to Palpation of Joints or Extremities Neurological: Cranial nerves II-XII grossly intact, Neuro grossly intact Psych/Mental Status: Normal Affect, Appropriate Laboratory Results 06/22/20 12:42: WBC 7.1, RBC 5.05, Hgb 15.3, Hct 45.9, MCV 90.9, MCH 30.3, MCHC 33.3, RDW Std Deviation 42.4, RDW Coeff of Darrius 12.7, Plt Count 168, MPV 9.7, Immature Gran % (Auto) 0.300, Neut % (Auto) 62.0, Lymph % (Auto) 26.6, [place] % (Auto) 10.1 H, Eos % (Auto) 0.7, Baso % (Auto) 0.3, Absolute Neuts (auto) 4.4, Absolute Lymphs (auto) 1.89, Nucleated RBC % 0 06/22/20 12:42: Sodium 138, Potassium 3.8, Chloride 103, Carbon Dioxide 29.0, Anion Gap 6, BUN 11, Creatinine 1.08, Estim Creat Clear Calc 93.24, Est GFR (MDRD) Af Amer 101, Est GFR (MDRD) Non-Af 83, BUN/Creatinine Ratio 10.2, Glucose 108 H, Calcium 8.9, Magnesium 2.2, Troponin I 1.200 H* Assessment/Plan 1. Paroxysmal atrial fibrillation/atrial flutter with worsening palpitations-accepted by Dr. Sanchez, [facility] for cardiology/EP evaluation. Transfer pending bed availability. Currently in sinus rhythm with first-degree AV block. Continue home metoprolol, Xarelto regimen. Monitor telemetry. 2. NSTEMI-suspect secondary to #1. Trend enzymes. Cardiology consulted. Transfer pending as noted above. 3. History of coxsackie carditis 4. Hypertrophic obstructive cardiomyopathy status post myomectomy 5. Anxiety-on as needed Ativan. DVT prophylaxis-Xarelto This patient was seen by MIKAYLA Glasgow under the supervision of Dr. Brand.
--- NOTE | 2020-06-22 19:21 | EKG12_ITS ---
Test Reason : CP ADMIT Blood Pressure : / mmHG Vent. Rate : 052 BPM Atrial Rate : 052 BPM P-R Int : 208 ms QRS Dur : 184 ms QT Int : 504 ms P-R-T Axes : -06 -51 140 degrees QTc Int : 468 ms Sinus bradycardia Left axis deviation Left bundle branch block Abnormal ECG When compared with ECG of 22-JUN-2020 16:43, MANUAL COMPARISON REQUIRED, DATA IS UNCONFIRMED Confirmed by GINA RAO, GEOVANNY ([id number]), newspaper managing editor MORIS WALLACE ([id number]) on 06/27/2020 10:24:56 AM Referred By: DR FRANCIS Confirmed By:GEOVANNY FUENTES MD
[2020-06-22 20:00] LABS: Magnesium 1.7 mg/dL (1.6-2.6); Thyroid Stim Hormone (TSH) 1.75 uIU/mL (0.358-3.74)
[2020-06-22] MEDS: Atorvastatin Calcium 80 MG Tablet PO (21:46)
[2020-06-22] MEDS: Metoprolol Tartrate 50 MG Tablet PO (21:47)
[2020-06-22] MEDS: Lactated Ringers 1,000 ML 125 ML IV (21:47)
[2020-06-23] VITALS (8 sets, daily range): BP systolic 95–112; BP diastolic 54–73; PULSE 48–65; RESP 16–18; TEMP 36.3–36.8; O2SAT 96–98
[2020-06-23 04:46] LABS: Cholesterol 255 mg/dL (200); High Density Lipoprotein 35 mg/dL; Triglycerides 125 mg/dL; Very Low Density Lipoprotein 25 mg/dL (5-40)
[2020-06-23] MEDS: Rivaroxaban 20 MG Tablet PO (05:53)
[2020-06-23] MEDS: Aspirin E.C. 81 MG Tablet PO ×2 (09:50)
[2020-06-23] MEDS: Metoprolol Tartrate 50 MG Tablet 100 MG PO (09:50)
--- NOTE | 2020-06-23 11:17 | DS.PCM_ITS ---
Discharge Date and Diagnosis Date of Admission: 06/22/20 Date of Discharge: 06/23/20 - Primary Discharge Diagnosis Acute Problems: 1. Paroxysmal atrial fibrillation/atrial flutter with worsening palpitations 2. NSTEMI-demand ischemia secondary to #1. 3. History of coxsackie carditis 4. Hypertrophic obstructive cardiomyopathy status post myomectomy 5. Anxiety - Secondary Discharge Diagnosis Chronic Problems: Chronic Problems Mitral valve disorder (Chronic) Atrial fibrillation and flutter (Chronic) Coxsackie carditis, unspecified (Chronic) NSTEMI (non-ST elevated myocardial infarction) (Chronic) Anxiety (Chronic) Hospital Course and Treatment Imaging Results: Diagnostic Data Chest X-Ray 06/22/20 12:55 IMPRESSION: No acute cardiopulmonary findings Cardiomegaly with previous cardiac surgery Electronically Signed: Spencer Condon DO at 13:14 EST Tel , Service support , Dr. Shannon- Cardiology Operations: None Procedures: 2-D Echocardiogram Summary of Care Provided: The patient is a 35 year old M admitted 06/22/2020 due to palpitations. 1. Paroxysmal atrial fibrillation/atrial flutter with worsening palpitations- accepted by Dr. Sanchez, [facility] Main [facility] for cardiology/EP evaluation. Continue home metoprolol, Xarelto regimen. Shifting between sinus bradycardia and 2-1 a flutter, sinus rhythm with PACs/PVCs. Transferred to [facility] for further EP evaluation. Echocardiogram ordered however transferred prior to completion. 2. NSTEMI-demand ischemia secondary to #1. Cardiology consulted. Transfer to [facility] as noted above. 3. History of coxsackie carditis 4. Hypertrophic obstructive cardiomyopathy status post myomectomy 5. Anxiety-on as needed Ativan. General: Alert, Oriented x3, Cooperative HEENT: Atraumatic, PERRLA, EOMI, Normocephalic Neck: Supple, No JVD, Negative Carotid Bruits Lungs: Clear to auscultation, Normal air movement Cardiovascular: Regular rate, No murmurs Abdomen: Bowel Sounds Present, Soft, Non Tender Extremities: No clubbing, No cyanosis, No edema, Capillary Refill Less than 3 Seconds Skin: No rashes, No breakdown, - - Healed midsternal scar Musculoskeletal: No Tenderness to Palpation of Joints or Extremities Neurological: Cranial nerves II-XII grossly intact, Neuro grossly intact Psych/Mental Status: Normal Affect, Appropriate Patient seen and examined prior to discharge. Physical assessment as noted above. Patient is stable for discharge with follow up recommendations as noted above. This patient was seen by MIKAYLA Glasgow under the supervision of Dr. Astorga. - Physical Exam Vitals/I&O's: Vital Signs Temp Pulse Resp BP Pulse Ox 97.6 F L 64 18 112/73 96 06/23/20 09:51 06/23/20 09:51 06/23/20 09:51 06/23/20 09:51 06/23/20 09:51 Oxygen Delivery Method Room Air Weight: 155 lb 12.8 oz Body Mass Index (BMI) 23.6 Finger Stick Blood Glucose 121 Intake and Output for Last 24 Hours 06/21/20 06/22/20 06/23/20 23:59 23:59 23:59 Intake Total 1360 / 1360 Balance 1360 / 1360 Laboratory Results 06/22/20 12:42: WBC 7.1, RBC 5.05, Hgb 15.3, Hct 45.9, MCV 90.9, MCH 30.3, MCHC 33.3, RDW Std Deviation 42.4, RDW Coeff of Darrius 12.7, Plt Count 168, MPV 9.7, Immature Gran % (Auto) 0.300, Neut % (Auto) 62.0, Lymph % (Auto) 26.6, [place] % (Auto) 10.1 H, Eos % (Auto) 0.7, Baso % (Auto) 0.3, Absolute Neuts (auto) 4.4, Absolute Lymphs (auto) 1.89, Nucleated RBC % 0 06/22/20 12:42: Sodium 138, Potassium 3.8, Chloride 103, Carbon Dioxide 29.0, Anion Gap 6, BUN 11, Creatinine 1.08, Estim Creat Clear Calc 93.24, Est GFR (MDRD) Af Amer 101, Est GFR (MDRD) Non-Af 83, BUN/Creatinine Ratio 10.2, Glucose 108 H, Calcium 8.9, Magnesium 2.2, Troponin I 1.200 H* 06/22/20 17:17: Troponin I 0.974 H* 06/22/20 17:17: Magnesium 1.7, TSH 1.75 06/22/20 20:16: Troponin I 1.130 H* 06/23/20 02:20: Triglycerides 125, Cholesterol 255 H, LDL Cholesterol 195 H, VLDL Cholesterol 25, HDL Cholesterol 35 L 06/23/20 02:20: Troponin I 1.120 H* Current Medications Acetaminophen (Acetaminophen 325 Mg Tablet) 650 mg PO Q6H PRN PRN PRN Reason: Pain Score 1-10/Temp > 100.7 F Aspirin (Aspirin E.C. 81 Mg Tablet) 81 mg PO DAILY@0800 [facility] Last Admin: 06/23/20 09:50 Dose: 81 mg Documented by: Atorvastatin Calcium (Atorvastatin Calcium 80 Mg Tablet) 80 mg PO QHS [facility] Last Admin: 06/22/20 21:46 Dose: 80 mg Documented by: Hydralazine HCl (Hydralazine 20 Mg/Ml Vial) 10 mg IV Q4H PRN PRN PRN Reason: SBP > 160 Lorazepam (Lorazepam 0.5 Mg Tablet) 0.5 mg PO DAILY PRN PRN PRN Reason: ANXIETY Metoprolol Tartrate (Metoprolol Tartrate 50 Mg Tablet) 50 mg PO QHS [facility] Last Admin: 06/22/20 21:47 Dose: 50 mg Documented by: Metoprolol Tartrate (Metoprolol Tartrate 50 Mg Tablet) 100 mg PO DAILY [facility] Last Admin: 06/23/20 09:50 Dose: 100 mg Documented by: Ondansetron HCl (Ondansetron 4 Mg/2 Ml Vial) 4 mg IV Q8H PRN PRN PRN Reason: NAUSEA/VOMITING Rivaroxaban (Rivaroxaban 20 Mg Tablet) 20 mg PO DAILY@0600 [facility] Last Admin: 06/23/20 05:53 Dose: 20 mg Documented by: Sodium Chloride (0.9% Saline Lock 10 Ml Syringe) 10 - 40 ml IV UD PRN PRN Reason: SALINE FLUSH Home Medications: Medications to take at Discharge Lorazepam [Ativan] 0.5 mg PO DAILY PRN PRN 08/31/16 Rivaroxaban [Xarelto] 20 mg PO DAILY@0600 #45 tablet 09/05/16 Metoprolol Tartrate 50 mg PO QHS 06/28/18 Metoprolol Tartrate 100 mg PO DAILY 06/28/18 Primary Care Physician: Flavio Méndez DO [Primary Care Provider] - Disposition: Acute care Hospital Minutes spent on discharge:: 35 Patient Condition:: Stable Medical Necessity - Tobacco Use Smoking Status: Former smoker Tobacco Use: Cigarettes Meaningful Use Info Meaningful Use Diagnoses (Choose all that apply): None applicable
== END 2020-06-23 15:17 | disposition short-term general hospital (02) | DRG 282 ==
LOC: ED 13:44 → PCU 06-23 06:59
PROVIDERS: Emergency Medicine; Admitting Provider Nurse Practitioner Family; Emergency Provider Student in an Organized Health Care Education/Training Program; PCP Family Medicine; Visit Provider Internal Medicine
DX: I48.0 Paroxysmal atrial fibrillation (principal); I21.A1 Myocardial infarction type 2; I42.1 Obstructive hypertrophic cardiomyopathy; I48.92 Unspecified atrial flutter; F32.9 Major depressive disorder, single episode, unspecified; F41.9 Anxiety disorder, unspecified; Z79.01 Long term (current) use of anticoagulants; Z79.899 Other long term (current) drug therapy; I25.2 Old myocardial infarction; Z86.19 Personal history of other infectious and parasitic diseases; Z87.891 Personal history of nicotine dependence
CPT/HCPCS: 36415; 71045; 80048; 80061; 83735; 84443; 84484; 85025; 93005; 99285; J7120; A4216

== ENCOUNTER → 2022-03-20 | Outpatient (CLI) | payer SELFPAY, OTHER ==
--- NOTE | 2022-03-20 08:59 | ECHOD_ITS ---
Reason For Study: PAF Procedure This was a 2D Doppler, Color Flow transthoracic echocardiogram. Myocardial strain analysis was performed in this exam to aid in the assessment of cardiac function. Exam performed in department. Left Ventricle Normal LV size. The estimated ejection fraction is 50-55 %. Unable to assess diastolic dysfunction. Apical septal hypokinesis. Right Ventricle Normal RV size. ICD or pacer leads identified within the right ventricle. Normal systolic function. Atria The left atrium is mildly enlarged. The right atrium is mildly enlarged. ICD or pacer leads identified within the right atrium. No doppler evidence for ASD. Mitral Valve There is no mitral valve stenosis. Trivial mitral valve insufficiency. Tricuspid Valve There is no tricuspid stenosis. Trivial tricuspid valve insufficiency. Pulmonary artery systolic pressure is 35 mmHg. Aortic Valve Trisinus/trileaflet aortic valve. There is no aortic stenosis. No aortic valve insufficiency. Pulmonic Valve There is no pulmonic valvular stenosis. Trivial pulmonic valve insufficiency. Great Vessels Normal aortic root. Pericardium/Pleural No pericardial effusion. MMode/2D Measurements & Calculations LVIDd: 4.6 cm IVSd: 1.3 cm Ao root diam: 2.7 cm LVIDs: 3.5 cm LVPWd: 1.3 cm RVDd: 3.0 cm FS: 24.0 % LAV(MOD-bp): 81.0 ml LVAd ap4: 41.6 cm2 LVAd ap2: 40.9 cm2 LAV(MOD-bp) Indexed: 43.6 ml/m2 LVLd ap4: 9.2 cm LVLd ap2: 9.4 cm LAV(MOD-sp2): 72.4 ml EDV(MOD-sp4): 153.2 ml EDV(MOD-sp2): 147.1 ml LAV(MOD-sp4): 87.7 ml EDV(sp4-el): 160.0 ml EDV(sp2-el): 151.4 ml LVAs ap4: 29.9 cm2 LVAs ap2: 30.0 cm2 LVLs ap4: 8.5 cm LVLs ap2: 8.3 cm ESV(MOD-sp4): 86.7 ml ESV(MOD-sp2): 90.1 ml ESV(sp4-el): 89.9 ml ESV(sp2-el): 92.5 ml EF(MOD-sp4): 43.4 % EF(MOD-sp2): 38.7 % EF(sp4-el): 43.8 % SV(MOD-sp4): 66.5 ml SV(MOD-sp2): 57.0 ml SV(sp4-el): 70.1 ml LA dimension(2D): 4.8 cm LA A4 area: 26.3 cm2 RA A4 area: 25.7 cm2 Doppler Measurements & Calculations MV E max kip: 82.1 cm/sec Lat Peak E' Kip: 7.5 cm/sec Med Peak E' Kip: 8.4 cm/sec MV A max kip: 23.4 cm/sec E/E' lat: 10.9 E/E' med: 9.8 MV E/A: 3.5 Ao V2 max: 95.0 cm/sec LV V1 max: 82.0 cm/sec PA V2 max: 93.0 cm/sec Ao max P.6 mmHg LV V1 max P.7 mmHg Ao V2 mean: 74.7 cm/sec LV V1 mean P.6 mmHg Ao mean P.4 mmHg LV V1 mean: 58.4 cm/sec Ao V2 VTI: 20.9 cm LV V1 VTI: 17.3 cm AV (velocity ratio): 0.83 TR max kip: 245.2 cm/sec TR max P.2 mmHg ECHO/Echo Complete Interpretation Summary The estimated ejection fraction is 50-55 %. Unable to assess diastolic dysfunction. Apical septal hypokinesis The left atrium is mildly enlarged. The right atrium is mildly enlarged. Trivial mitral valve insufficiency. Ordering Physician: ISAAK PEREZ Referring Physician: Flavio Méndez Performed By: Ines Santamaria RDCS
[2022-03-20 11:32] LABS: Anion Gap 3 (5-15); BUN 15 mg/dL (7-18); BUN/Creat Ratio 14.6 RATIO (10-20); Calcium,Total 8.9 mg/dL (8.5-10.1); Chloride 106 mmol/L (98-107); Creatinine, Serum 1.03 mg/dL (0.70-1.30); EST Glomerular Filtration Rate 87 mL/min (>60); Est Glom Filt Rate - Afr Amer 105 mL/min (>60); Glucose 82 mg/dL (74-106); Potassium 4.3 mmol/L (3.5-5.1); Sodium Level 138 mmol/L (136-145)
== END | disposition home or self-care (01) ==
PROVIDERS: PCP Family Medicine
DX: I48.0 Paroxysmal atrial fibrillation (principal); I50.22 Chronic systolic (congestive) heart failure
CPT/HCPCS: 36415; 80048; 93306